=== PATIENT | male | born 1990 | race Caucasian/White ===

== ENCOUNTER 2024-03-07 18:08 | Outpatient (CLI) | payer OTHER, SELFPAY | END 2024-03-07 18:09 | disposition home or self-care (01) | LOC: LKVREF 18:10 | PROVIDERS: PCP Family Medicine; Visit Provider Family Medicine | DX: Z00.00 Encounter for general adult medical examination without abnormal findings (principal); E78.00 Pure hypercholesterolemia, unspecified; I10 Essential (primary) hypertension; E66.9 Obesity, unspecified; R06.83 Snoring | CPT/HCPCS: 80053; 80061 ==

== ENCOUNTER 2024-03-30 19:18 | Outpatient (CLI) | payer OTHER, SELFPAY ==
--- NOTE | 2024-04-13 09:03 | W.PM.SLEEP ---
Sleep Study Details Details Interpreting Provider: Carlos Alberto Date of Sleep Study: 03/30/24 Sleep Study Details: STUDY TYPE:? Home unattended ? BMI:? 41 ORDERING PROVIDER:? Carlos Alberto INDICATION:? Concern about sleep apnea ? SLEEP SUMMARY:? 492 minutes monitored RESPIRATORY SUMMARY:? AHI 20.3 Low oxygen 87 4.3% of study oxygen less than 90% Snoring 86.7% PERIODIC LIMB MOVEMENTS OF SLEEP:? Not recorded CARDIAC:? Range 42-101, mean 56.5 beats per minute IMPRESSION:? Moderate obstructive sleep apnea RECOMMENDATION: Weight loss is recommended. CPAP or dental appliance are both potential treatment options
== END 2024-03-30 19:19 | disposition home or self-care (01) ==
LOC: SLEEP 19:22
PROVIDERS: PCP Family Medicine; Visit Provider Otolaryngology
DX: G47.33 Obstructive sleep apnea (adult) (pediatric) (principal)
CPT/HCPCS: 95806

== ENCOUNTER 2024-10-07 18:50 | Outpatient (CLI) | payer OTHER, SELFPAY | END 2024-10-07 18:51 | disposition home or self-care (01) | LOC: NFLDREF 10-11 02:51 | PROVIDERS: PCP Family Medicine; Referring Provider Family Medicine; Visit Provider Physician Assistant | DX: R50.9 Fever, unspecified (principal); R10.2 Pelvic and perineal pain | CPT/HCPCS: 36415; 74176; 80076; 81001; 83605; 87086; 87491; 87591; 96374; 99284; J1885; J7030 ==

== ENCOUNTER 2024-10-07 19:50 | Emergency (ER) | payer OTHER, SELFPAY ==
--- OUTSIDE RECORDS SUMMARY | 2024-10-07 19:52 | XMS_ITS | Clinical Summary ---
Author Organization [email or web address] [facility] Address [address] [place] [id number] Care Team Providers Care Special Education Administrator Name Role Phone Elizabeth Dawson MD Primary Care Provide r Allergies No known active allergies Medications atorvastatin (LIPITOR) 40 mg tabletIndications :Dyslipidemia Take 1 Tablet (40 mg) by mouth at bedtime. 90 Tablet 3 05/26/2023 Active lisinopril-hydroc hlorothiazide 20-12.5 mg tablet (PRINZIDE)Indicat ions:Essential hypertension Take 1 Tablet by mouth once daily. 90 Tablet 3 05/26/2023 Active Active Problems Problem Noted Date Diagnosed Date Morbid obesity with BMI of 40.0-44.9, adult 03/27 Mixed hyperlipidemia 01/16/2012 HTN (hypertension) 08/26/2010 ADHD (attention deficit hyperactivity disorder) 08/20/2010 Resolved Problems Problem Noted Date Diagnosed Date Resolved Date Low HDL (under 40) 10/31/2018 Essential hypertension 02/05/201805/26 Elevated ALT measurement 05/07/2017 Dyslipidemia 05/07/2017 05/26/2023 Need for prophylactic vaccin ation and inoculation against influenza 04/09/2017 04/09/2021 Hypertension 04/09/2017 05/26/2023 Obesity BMI 40.0-44.9, adult 08/20/2010 04/09/2021 Morbid obesity 08/20/2010 04/09/2021 Immunizations Immunization Administration Dates Next Due COVID-19 VACCINE SPIKEVAX (Parth BEAR 50G/0.5ML) 12YO+ PFS 05/26/2023 COVID-19 vaccine (Moderna 50mcg/0.5mL) 12YO+ BIVALENT PF, MDV 05/06/2022 COVID-19 vaccine (Moderna Parth kimmy 50mcg/0.25mL) PF, MDV 04/09/2021 COVID-19 vaccine (Pfizer-Bio NTech 30mcg/0.3mL) PF, MDV 09/27/2020,09/07/2020 DTaP 07/17/1994, 1,1989,1989,1989 Hepatitis B, Unspecified 01/25/1993,08/03/1992,0 07/03/1992 Hib Conjugate, Unspecified 08/27/1990,06/28/1990 ,04/22/1990 Influenza A (H1N1), Inactivated 03/29/2009 Influenza, IIV4 05/26/2023, 1,02/04/2020,2016 Influenza,CCIIV4 PRESERV FREE 03/25/2019 MMR 06/19/2000,08/27/1990 Oral Polio Vaccine 07/17/1994 Polio Virus, Unspecified 12/20/1990,1989,0 1989 Tdap 05/06/2022, 2,08/20/2010,2005 Varicella Vaccine 12/22/2008,10/05/1995 Family History Medical History Relation Name Comments Heart Disease Father Had [place] Hypertension Father Unknown Half-Sister Heart Disease Maternal Grandfather o f [place] in 70's Hypertension Mother Stroke Paternal Aunt Hypertension Paternal Grandfather Relation Name Status Comments Father Alive Half-Brother Alive Half-Sister Alive Maternal Grandfather Maternal Grandmother Mother Alive Paternal Aunt Paternal Grandfather Paternal Grandmother Social History Tobacco Use Types Packs/Day Years Used Date Smoking Tobacco: Never Smokeless Tobacco: Never Alcohol Use Standard Drinks/Week Comments Yes 0.8 (1 standard drink = 0.6 oz p ure alcohol) social PHQ-2 Answer Date Recorded PHQ-2 TOTAL SCORE 1 05/26/2023 Social Connections Answer Date Recorded Frequency of Communication with Friends and Fami ly Not on file 04/20/2021 Financial Resource Strain Answer Date R ecorded Difficulty of Paying Living Expenses Not on file 04/20/2021 Difficulty of Paying Living Expenses Not on file 04/20/2021 Sex and Gender Information Value Date Recorded Sex Assigned at Not on file Legal Sex Male 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 Gender Identity Not on file Sexual Orientation Not on file 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 Not on file Not on file Not on f ile Obstetrics History Last Filed Vital Signs Vital Sign Reading Time Taken Comments Blood Pressure 126/74 05/26/2023 1:16 PM C[employer]ILEVER CRANE OPERATOR Pulse 67 05/26/2023 1:16 PM CANTILEVER CRANE OPERATOR Temperature 36.4 C (97.6 F) 04/09/2021 8:14 AM C[employer]ILEVER CRANE OPERATOR Respiratory Rate 18 04/09/2021 8:14 AM CANTILEVER CRANE OPERATOR Oxygen Saturation 100% 05/16/2021 3:29 PM CANTILEVER CRANE OPERATOR Inhaled Oxygen Concentration - - Weight 151.6 kg (334 lb 3.2 oz) 05/26/2023 1:16 PM CANTILEVER CRANE OPERATOR Height 191.1 cm (6' 3.25) 05/26/2023 1:16 PM CS T Body Mass Index 41.5 05/26/2023 1:16 PM CANTILEVER CRANE OPERATOR Plan of Treatment Health Maintenance Due Date Last Done Comments HIV for age 15-65 2004 Hepatitis C screening for age 18-79 2007 COVID-19 vaccine series ( season) 2023 05/26/2023, 05/06/2022, 04/09/2021, Additional history exists BMI (ht and wt on same day) for age 18+ 05/26/2024 05/26/2023, 05/06/2022, 05/16/2021, Additional history exists Depression screening for age 12+ 05/26/2024 05/26/2023, 05/06/2022, 04/09/2021, Additional history exists Influenza Vaccine (Season Ended) 2024 05/26/2023, 04/09/2021, 02/04/2020, Additional history exists Lipids for age 35-44 05/26/2028 05/26/2023, 05/06/2022, 04/09/2021, Additional history exists Tetanus booster 05/06/2032 05/06/2022, 12/27, 08/20/2010, Additional history exists Hepatitis B series for 19+ Completed 01/25, 08/03/1992, 07/03/1992 Tdap Completed 05/06/2022, 12/27, 08/20/2010, Additional history exists Pneumococcal series for age 6-49 Aged Out No longer eligible based on patient's age to complete this topic Procedures Procedure Name Priority Date/Time Associated Diagnosis Comments LIPID PANEL W REFLEX MEASURED LDL Routine 05/26/2023 1:50 PM CANTILEVER CRANE OPERATOR Mixed hyperlipidemia from Last 3 Months or Most Recently Relevant to Health Maintenance Results * (ABNORMAL) LIPID PANEL W REFLEX MEASURED LDL (05/26/2023 1:50 PM CANTILEVER CRANE OPERATOR) CHOLESTEROL,TOTAL 179 100 - 199 mg/dL 05/27/2023 10:25 AM CANTILEVER CRANE OPERATOR [facility] [employer] [facility] Comment: Cholesterol, Total Reference Ranges Desirable <200 mg/dL Borderline 200-239 mg/dL High >=240 mg/dL TRIGLYCERIDES 111 <150 mg/dL 05/27/2023 10:25 AM CANTILEVER CRANE OPERATOR [facility] [employer] [facility] HDL CHOLESTEROL 32(L) >40 mg/dL 10:25 AM CANTILEVER CRANE OPERATOR [facility] [employer] NON-HDL CHOLESTEROL 147(H) <145 mg/dl 05/27/2023 10:25 AM CANTILEVER CRANE OPERATOR [facility] [employer] [facility] CHOL/HDL RATIO 5.59(H) <4.50 05/27/2023 10:25 AM CANTILEVER CRANE OPERATOR [facility] [employer] [facility] LDL CHOLESTEROL 125 <=130 mg/dL 05/27/2023 10:25 AM CANTILEVER CRANE OPERATOR [facility] [employer] VLDL CHOLESTEROL 22 <=30 mg/dL 05/27/2023 10:25 AM CANTILEVER CRANE OPERATOR [facility] [employer] PROVIDER ORDERED STATUS RANDOM 05/27/2023 10:25 AM [facility] [employer] [facility] Blood BLOOD SPECIMEN / Unknown Venipuncture / Unknown 05/26/2023 1:50 PM CANTILEVER CRANE OPERATOR 05/26/2023 1:52 PM CANTILEVER CRANE OPERATOR us Shelli HODGSON CHEMISTRY Final Result [facility] [address] [place] [id number], from Last 3 Months or Most Recently Relevant to Health Maintenance Insurance [facility] Care Teams Special Education Administrator Relationship Specialty Start Date End Date Elizabeth Dawson MD [address] [place] [address] PCP - General Internal Medicine 10/29/18
[2024-10-07 19:53] VITALS: BP 117/71; PULSE 108; RESP 16; TEMP 37.3; O2SAT 99; BMI 42.0
[2024-10-07 20:04] LABS: Appearance Urine Clear (Clear); Bilirubin Urine Negative (Negative); Blood Urine Negative (Negative); Color Urine Orange (Yellow); Glucose Urine Negative (Negative); Ketones Urine Trace (Negative); Leukocyte Esterase Urine Trace (Negative); Nitrite Urine Negative (Negative); Protein Urine 1+ (Negative); Specific Gravity Urine 1.015 (1.000-1.030); Urobilinogen Urine >=8.0 (0.2-1.0); pH Urine 6.5 (5.0-8.5)
--- NOTE | 2024-10-07 20:05 | CRLHL7_ITS ---
For Patients: As a result of the Century Cures Act, medical imaging exams and procedure reports are released immediately into your electronic medical record. You may view this report before your referring provider. If you have questions, please contact your health care provider. INDICATION: Left flank pain. TECHNIQUE: CT abdomen and pelvis without contrast. COMPARISON: None. FINDINGS: Lower chest: No focal consolidation. Evaluation of solid organs is limited secondary to lack of IV contrast administration. Liver: Geographic hepatic steatosis of the right lobe. No suspicious focal hepatic lesion, noting that the hepatic dome was not included within the field of view. Gallbladder and bile ducts: Gallbladder is decompressed, suboptimally evaluated. Pancreas: Unremarkable. Spleen: Unremarkable. Splenules are noted. Adrenal glands: Unremarkable. Kidneys: No renal calculi or hydronephrosis bilaterally. No significant perinephric inflammation. Retroperitoneum: No lymphadenopathy. Bowel and mesentery: Bowel is not obstructed. No significant ascites, no pneumoperitoneum. Normal appendix. Bladder: Circumferential wall thickening, with pericystic inflammation. Reproductive organs: No significant prostatomegaly. Pelvic lymph nodes: No lymphadenopathy. Vessels: Unremarkable for unenhanced study. Abdominal wall: No acute abdominal wall abnormality. Bones: No suspicious/aggressive focal osseous lesion. IMPRESSION: 1. Circumferential wall thickening of the urinary bladder, with pericystic inflammation, concerning for cystitis. 2. No renal calculi or hydronephrosis bilaterally. Please note that all CT scans at this facility use dose modulation, iterative reconstruction, and/or weight-based dosing when appropriate to reduce radiation dose to as low as reasonably achievable. Dictated by Jatinder Cunningham MD @ 10/07/2024 8:47:06 PM (Electronically Signed)
[2024-10-07 20:08] LABS: Bacteria Urine Few; RBC Urine 0-2 (0-2); Squamous Epithelial Cell Urine Few (None-Few)
--- NOTE | 2024-10-07 20:14 | ED.GENADULT ---
HPI - General Adult General Chief complaint: Flank Pain Stated complaint: fever/flank pain/from UC Time Seen by Provider: 10/07/24 20:04 Source: patient Mode of arrival: ambulatory Limitations: no limitations History of Present Illness HPI narrative: 34-year-old male with a history of hyperlipidemia hypertension, taking lisinopril-hydrochlorothiazide and atorvastatin, presents today with flank pain that started 2 days ago. Pain has radiated more towards the front of the abdomen now. He denies any blood in his urine but does complain of increased urinary frequency with decreased urinary output. He states that he had a fever today. No nausea or vomiting but does complain of a decreased appetite. Denies diarrhea or constipation. Patient was in urgent care today where he had a CBC done: Normal white cell count with 81.9% neutrophils. UA showed 1+ protein, trace blood greater than 8 urobilinogen, trace leukocyte esterase and 2-5 RBCs. Chemistries show a slightly low sodium at 1:35 a.m., slightly low potassium at 3.3. Creatinine is elevated at 1.4. Related Data Previous Rx's ?Medication ?Instructions ?Recorded atorvastatin 40 mg tablet 40 mg PO QHS #90 tabs 09/09/24 lisinopril 20 1 tab PO QDAY #90 tabs 09/09/24 mg-hydrochlorothiazide 12.5 mg tablet ciprofloxacin HCl 500 mg tablet 500 mg PO BID 7 days #14 tabs 10/07/24 Allergies Allergy/AdvReac Type Severity Reaction Status Date / Time No Known Drug Allergies Allergy Verified 06/21/24 11:21 Review of Systems Status of ROS: Reports: 10 or more systems reviewed and unremarkable except as noted in History and below [facility] Medical History Obesity ?E66.9 - Obesity, unspecified (ICD-10) Hypercholesteremia ?E78.00 - Pure hypercholesterolemia, unspecified (ICD-10) HTN (hypertension) ?I10 - Essential (primary) hypertension (ICD-10) Social History Smoking Status: Never smoker Do you use any of these nicotine containing products: None How often do you have a drink containing alcohol: monthly or less How many standard drinks containing alcohol do you have on a typical day: 1 or 2 How often do you have six or more drinks on one occasion: Never AUDIT-C Alcohol total score: 1 Non-prescribed substance use: denies use Exam Narrative: Exam Narrative: Obese, well-developed patient in no acute distress. Alert and oriented. Answers questions appropriately. Mood and affect are appropriate. Thoughts are goal oriented and rational. No tangential or magical thinking noted. Patient speaks in full sentences without needing to catch his breath. HEENT: Normocephalic atraumatic. Pupils are equally round reactive to light. Extraocular muscles are intact. Conjunctivae are moist without any icterus noted. Moist mucous membranes. Cardiovascular: Heart is regular rate and rhythm. Lungs: Clear to auscultation bilaterally no wheezes rhonchi or rales are appreciated. Abdomen: Soft and nontender nondistended with normal bowel sounds. No guarding or rebound. He does have minimal left-sided CVA tenderness. Extremities: Bilateral lower extremities are without edema. Skin: Well perfused. Const: Vital Signs, click to edit/add: Vital Signs - 24 hr 10/07/24 19:53 Temperature 99.2 F Pulse Rate [Pulse Oximeter] 108 H Respiratory Rate 16 Blood Pressure [Ri ght Upper Arm] 117/71 Pulse Oximetry 99 Oxygen Delivery Me thod Room Air Course Course ED Course: IV was established and patient is given a L of normal saline and IV Toradol. UA is repeated and does not have any blood in it but again showing greater than 8 urobilinogen. Therefore LFTs were drawn. He does have a slightly elevated total bilirubin at 2.2, mildly elevated LFTs consistent with exam done in 2023. Abdominal CT was ordered. Signs visualize concerning for cystitis. No evidence of renal stones. Normal lactate. Urine culture pending. Vital Signs Vital signs: Initial Vital Signs Temperature 99.2 F 10/07/24 19:53 Temperature Source Temporal Artery Scan 10/07/24 19:53 Pulse Rate 108 H 10/07/24 19:53 Respiratory Rate 16 10/07/24 19:53 Blood Pressure 117/71 10/07/24 19:53 Blood Pressure Mean 86 10/07/24 19:53 Blood Pressure Position Sitting 10/07/24 19:53 Pulse Oximetry 99 10/07/24 19:53 Oxygen Delivery Method Room Air 10/07/24 19:53 Vital Signs Temperature 99.2 F 10/07/24 19:53 Pulse Rate 108 H 10/07/24 19:53 Respiratory Rate 16 10/07/24 19:53 Blood Pressure 117/71 10/07/24 19:53 Pulse Oximetry 99 10/07/24 19:53 Oxygen Delivery Method Room Air 10/07/24 19:53 Temperature 99.2 F 10/07/24 19:53 Pulse Rate 108 H 10/07/24 19:53 Respiratory Rate 16 10/07/24 19:53 Blood Pressure 117/71 10/07/24 19:53 Pulse Oximetry 99 10/07/24 19:53 Oxygen Delivery Method Room Air 10/07/24 19:53 Medications Administered Medications: Generic Name Dose Route Start Last Admin Trade Name Freq PRN Reason Stop Dose Admin Sodium Chloride 1,000 mls @ 1,000 mls/hr 10/07/24 20:15 10/07/24 20:23 0.9 % Sodium Chloride 1000 Ml IV 10/07/24 21:14 1,000 mls/hr .Q1H KETAN Administration Discontinued Medications Generic Name Dose Route Start Last Admin Trade Name Freq PRN Reason Stop Dose Admin Ketorolac Tromethamine 30 mg 10/07/24 20:09 10/07/24 20:22 Ketorolac 30 Mg/Ml Inj IVP 10/07/24 20:10 30 mg ONCE ONE Administration Medical Decision Making MDM Narrative Medical decision making narrative: 34-year-old male with increased urinary frequency, decreased urinary output, fever, evidence of cystitis on CT. Mild flank discomfort which is not radiating more towards the front of the abdomen. Patient certainly could have had a stone or have a stone that was missed on CT verses cystitis causing his symptoms. He could be developing pyelonephritis. Fever could also be caused by viral infection such as COVID-19 although he has no respiratory symptoms. At this time we will treat cystitis with ciprofloxacin 500 mg p.o. b.i.d. for a week. I want him to follow up with primary care provider 1st thing on Thursday. Return to the ER if he is getting worse instead of better between now and then. Lab Data Lab results reviewed: Yes I reviewed the patient's lab results Labs: Lab Results 10/07/24 10/07/24 Range/Units 20:02 20:15 Lactate 1.4 (0.5-1.9) mmol/L Total Bilirubin 2.2 H (0.1-1.5) mg/dL Direct Bilirubin 0.3 (0.0-0.5) mg/dL AST 47 H (12-35) U/L ALT 59 H (4-50) U/L Alkaline Phosphatase 66 (40-150) U/L Total Protein 7.4 (6.0-8.3) g/dL Albumin 4.7 (3.3-5.0) g/dL Urine Color Rozet A (Yellow) Urine Appearance Clear (Clear) Urine pH 6.5 (5.0-8.5) Ur Specific [place] 1.015 (1.000-1.030) Urine Protein 1+ A (Negative) Urine Glucose (UA) Negative (Negative) Urine Ketones Trace A (Negative) Urine Blood Negative (Negative) Urine Nitrite Negative (Negative) Urine Bilirubin Negative (Negative) Urine Urobilinogen >=8.0 A (0.2-1.0) Ur Leukocyte Esterase Trace A (Negative) Urine RBC 0-2 (0-2) Urine WBC 5-10 A (0-5) Ur Squamous Epith Cells Few (None-Few) Urine Bacteria Few A (None) Imaging Data CT scan - abdomen: Attestation: I have reviewed the pertinent imaging results. Radiologist's impression: TECHNIQUE: CT abdomen and pelvis without contrast. COMPARISON: None. FINDINGS: Lower chest: No focal consolidation. Evaluation of solid organs is limited secondary to lack of IV contrast administration. Liver: Geographic hepatic steatosis of the right lobe. No suspicious focal hepatic lesion, noting that the hepatic dome was not included within the field of view. Gallbladder and bile ducts: Gallbladder is decompressed, suboptimally evaluated. Pancreas: Unremarkable. Spleen: Unremarkable. Splenules are noted. Adrenal glands: Unremarkable. Kidneys: No renal calculi or hydronephrosis bilaterally. No significant perinephric inflammation. Retroperitoneum: No lymphadenopathy. Bowel and mesentery: Bowel is not obstructed. No significant ascites, no pneumoperitoneum. Normal appendix. Bladder: Circumferential wall thickening, with pericystic inflammation. Reproductive organs: No significant prostatomegaly. Pelvic lymph nodes: No lymphadenopathy. Vessels: Unremarkable for unenhanced study. Abdominal wall: No acute abdominal wall abnormality. Bones: No suspicious/aggressive focal osseous lesion. IMPRESSION: 1. Circumferential wall thickening of the urinary bladder, with pericystic inflammation, concerning for cystitis. 2. No renal calculi or hydronephrosis bilaterally. Discharge Plan Discharge Clinical Impression: Fever, Cystitis Patient Disposition: Home, Self-Care Condition: Stable Additional Instructions: Unclear what is causing your pain and fever. However, you do appear to have a bladder infection and you could potentially also have a kidney infection. No evidence of stones were seen today causing her discomfort. Will be treated with an antibiotic. Take all antibiotics as prescribed. You need to follow-up with your primary care provider on Thursday. If you get worse between now and then: developed increasing pain or begin vomiting - then you should return to the emergency department. Make sure to stay well hydrated. Prescriptions: New ciprofloxacin HCl 500 mg tablet 500 mg PO BID 7 Days Qty: 14 0RF No Action atorvastatin 40 mg tablet 40 mg PO QHS Qty: 90 0RF lisinopril-hydrochlorothiazide 20-12.5 mg tablet 1 tab PO QDAY Qty: 90 0RF Follow Up/Referrals: Cuco Houston MD [Primary Care Provider, Family Practice] Stand Alone Forms: [employer] Info Instructions
[2024-10-07] MEDS: KETOROLAC 30 MG/ML inj IVP (20:22)
[2024-10-07] MEDS: 0.9 % SODIUM CHLORIDE 1000 ml 1,000 ML IV (20:23)
[2024-10-07 20:27] LABS: Lactate* 1.4 mmol/L (0.5-1.9)
[2024-10-07 20:42] LABS: Albumin* 4.7 g/dL (3.3-5.0)
[2024-10-07 20:45] LABS: Alanine Aminotransferase* 59 U/L (4-50); Alkaline Phosphatase* 66 U/L (40-150); Aspartate Amino Transferase* 47 U/L (12-35); Bilirubin Direct* 0.3 mg/dL (0.0-0.5); Bilirubin Total* 2.2 mg/dL (0.1-1.5); Total Protein* 7.4 g/dL (6.0-8.3)
[2024-10-07 22:45] LABS: Chlamydia DNA Amplified* NOT DETECTED (No Detected); GC DNA Amplified* NOT DETECTED (No Detected)
== END 2024-10-07 21:16 | disposition home or self-care (01) ==
PROVIDERS: Emergency Provider Family Medicine; PCP Family Medicine
DX: N30.90 Cystitis, unspecified without hematuria (principal); R50.9 Fever, unspecified; R63.0 Anorexia
CPT/HCPCS: 36415; 74176; 80076; 81001; 83605; 87086; 87491; 87591; 96374; 99284; J1885; J7030